=== PATIENT | female | born 1970 | race Caucasian/White ===

== ENCOUNTER 2018-04-16 05:21 | Observation (INO) | payer OTHER ==
[2018-04-16] MEDS ORDERED: PREGNANCY TEST KIT 1 EACH KIT MC ONE (05:28)
[2018-04-16] MEDS ORDERED: LACTATED RINGERS 1,000 ML IV ONE (05:29)
[2018-04-16] MEDS ORDERED: LEVALBUTEROL HCL 1.25 MG/3 ML VIAL.NEB IH ONE (05:44)
[2018-04-16] MEDS ORDERED: ONDANSETRON HCL/PF 4 MG/ 2ML VIAL ONE (08:48)
[2018-04-16] MEDS ORDERED: PROPOFOL 200 MG/20 ML VIAL IV ONE (08:48)
[2018-04-16] MEDS ORDERED: HYDROmorphone HCL/PF 2 MG/ML VIAL ONE ×2 (08:48→10:19)
[2018-04-16] MEDS ORDERED: LACTATED RINGERS 1,000 ML IV.SOLN IV ONE ×2 (08:48)
[2018-04-16] MEDS ORDERED: SEVOFLURANE 250 ML LIQUID IH ONE (08:48)
[2018-04-16] MEDS ORDERED: BACITRACIN 50,000 UNIT VIAL IR ONE (08:48)
[2018-04-16] MEDS ORDERED: LIDOCAINE HCL 2% PF 100MG/5ML VIAL IJ ONE (08:48)
[2018-04-16] MEDS ORDERED: DEXAMETHASONE SOD PHOS 4 MG/ML VIAL ONE (08:48)
[2018-04-16] MEDS ORDERED: FENTANYL CITRATE/PF 250 MCG/5 ML INJ. ONE (08:48)
[2018-04-16] MEDS ORDERED: ROCURONIUM BROMIDE 10 MG/ML 5ML VIAL ONE (08:48)
[2018-04-16] MEDS ORDERED: GLYCOPYRROLATE 0.2 MG/1 ML 1 ML ONE (08:48)
[2018-04-16] MEDS ORDERED: ceFAZolin SODIUM 1 GM VIAL ONE (08:48)
[2018-04-16] MEDS ORDERED: THROMBIN (RECOMBINANT) 20,000 UNIT VIAL TP ONE (08:48)
[2018-04-16] MEDS ORDERED: MIDAZOLAM HCL 2 MG/2 ML VIAL ONE ×3 (08:48→10:34)
[2018-04-16] MEDS ORDERED: PHENYLEPHRINE HCL 10 MG/1 ML ONE (08:48)
[2018-04-16] MEDS ORDERED: ePHEDrine SULFATE 50 MG/1 ML IVP ONE (08:48)
[2018-04-16] MEDS ORDERED: ACETAMINOPHEN 500 MG TABLET PO PRN (11:25)
[2018-04-16] MEDS ORDERED: MORPHINE SULFATE 4 MG/ML VIAL IVP PRN (11:25)
[2018-04-16] MEDS ORDERED: PROMETHAZINE HCL 25 MG in 0.9 % SODIUM CHLORIDE 50 ML IV PRN (11:25)
[2018-04-16] MEDS ORDERED: ONDANSETRON HCL/PF 4 MG/ 2ML VIAL IVP PRN (11:25)
[2018-04-16] MEDS ORDERED: KETOROLAC TROMETHAMINE 30 MG/1ML VIAL IVP PRN (11:25)
[2018-04-16] MEDS ORDERED: diphenhydrAMINE HCL 25 MG TABLET PO PRN (11:25)
[2018-04-16] MEDS ORDERED: LEVALBUTEROL HCL 1.25 MG/3 ML VIAL.NEB IH PRN (11:37)
--- NOTE | 2018-04-16 11:38 | History and Physical Report ---
History of Present Illnes - History of Present Illness Reason for Visit: S/P Cervical Total Disc Replacement C4/5 Bilateral C6/7 History of Present Illness: Patient is a 47-year-old female being admitted observation s/p cervical total disc replacement of C4/5, C6/7. She has an extensive history of back pain with numerous treatments including; injections, manipulation under anesthesia, facets, and other surgical interventions. It was decided by patient and surgeon to move forward with cervical surgical procedure. Upon my arrival into room patient appeared to be resting comfortably- once I introduced myself she started moving around in the bed complaining of severe pain. Explained that orders were placed and nurse would be in shortly to give appropriate medications. Explained that we would get her up and walk, would try clear liquid diet and advance as tolerated to accomplish goals to discharge home tomorrow. - Past Medical History Cardiac: HTN, Hyperlipidemia Pulmonary: Asthma Psych: Other (PTSD, Insomnia) Musculoskeletal: Osteoarthritis, Other (DDD, neuropathy) Endocrine: obesity Grav: 2 Para: 2 - Past Surgical History Past Surgical History: Tubal Ligation, Other (back surgeries, RFA) - Past Family History Mother Family History: Father Family History: CAD, Hyperlipidemia, Hypertension - Past Social History Smoke: 1 pack per day Alcohol: None Drugs: None Lives: With Family Domestic Violence: Negative - Health Maintenance Health Maintenance: Influenza Vaccine Influenza Vaccine: Current for this Influenza Season Pneumonia Vaccine: No Resuscitation Status: Resusciation Status Resuscitation Status Full Code - Unable to Obtain History Unable to Obtain: No Review of Systems - Review of Systems Constitutional: negative: Fever, Chills Eyes: negative: pain, vision change ENT: negative: Ear Pain, Nose Pain, Throat Pain Respiratory: negative: Cough, Shortness of Breath Cardiovascular: negative: Chest Pain Gastrointestinal: negative: Nausea, Vomiting Genitourinary: negative: Dysuria Musculoskeletal: Neck Pain (s/p surgery) Skin: negative: Rash Neurological: negative: Numbness, Change in Speech, Confusion - Medications/Allergies Allergies/Adverse Reactions: Allergies Allergy/AdvReac Type Severity Reaction Status Date / Time quetiapine [From Seroquel] Allergy Verified 04/16/18 11:14 Exam - Exam General: Alert, Oriented to Person, Oriented to Place, Oriented to Time, Cooperative, Moderate distress (pt was calm-lying in bed- until I introduced myself), Obese HEENT: PERRLA, Mouth Mucous membr. moist/[place], Nose Mucous membr. moist/[place] Neck: Other (s/p surgery (c collar on)) Lungs: Clear to auscultation, Normal air movement, Speaks full Sentences Cardiovascular: Normal S1, Normal S2, No murmurs Peripheral Edema: Negative Peripheral Pulses: 2+ Abdomen: Soft, No tenderness, Decreased Bowel Sounds Integumentary: Normal, [place], Warm, Dry Extremities: No edema, Normal pulses, No tenderness/swelling Neurological: Normal speech, Strength Equal Bilat, Sensation intact, Reflexes 2+ Psych/Mental Status: Mental status NL Assessment/Plan - Assessment/Plan (1) Status post cervical disc replacement Status: Acute Current Visit: Yes Assessment: Cervical incision site dressed (intact/dry) with c-collar on. Neurovasculars intact including sensation. 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 Will start patient on clear liquid diet and advance as tolerated. Plan: Nursing will complete neuro checks frequently, SCDs while in bed, frequent ambulation, frequent use of incentive spirometer, heparin q 12 hours (2) Hyperlipidemia Status: Acute Current Visit: Yes Qualifiers: Hyperlipidemia type: mixed hyperlipidemia Qualified Code(s): E78.2 - Mixed hyperlipidemia Assessment: stable on home medications Plan: will continue home medication (3) PTSD (post-traumatic stress disorder) Status: Acute Current Visit: Yes Assessment: Stable on home meds Plan: Will continue on home medications (4) Hypertension Status: Acute Current Visit: Yes Qualifiers: Hypertension type: essential hypertension Qualified Code(s): I10 - Essential (primary) hypertension Assessment: Stable on home meds- blood pressures controlled on admission Plan: Will continue with blood pressure medications (5) Asthma Status: Acute Current Visit: Yes Qualifiers: Asthma severity: mild Asthma persistence: intermittent Assessment: LCTA Plan: Will monitor lung sounds, have patient use incentive spirometer, and HFNs ordered as needed (6) Degenerative disc disease Status: Acute Current Visit: Yes Qualifiers: Spinal region: mid-cervical Mid-cervical spinal level: C6-C7 Qualified Code(s): M50.323 - Other cervical disc degeneration at C6-C7 level Assessment: s/p cervical total disc replacement of C4/5, C6/7 Plan: Will give medication to help with pain, will monitor incision site, and neurovasculars (7) Neuropathy Status: Acute Current Visit: Yes Assessment: stable on home meds Plan: Will continue with home medications VTE Assessment - RISK FACTOR SCORE VTE RISK FACTOR SCORES: AGE 40-60 YEARS, OBESITY, MAJOR SURGERY/ANESTHESIA TIME > 1 HOUR - RISK VTE HIGH RISK: SCORE OF 3-4 (RISK PROXIMAL DVT 4-8%) PROPHYLAXIS NEEDED (Heparin 5000units sq every 12 hrs, freq ambulation, SCDs while in bed)
[2018-04-16] MEDS ORDERED: LORazepam 1 MG TABLET PO PRN (11:55)
[2018-04-16] MEDS: oxyCODONE/ACETAMINOPHEN 5/325 TABLET PO PRN ×3 (12:09→23:32)
[2018-04-16] MEDS: POTASSIUM CHLOR 20 MEQ D51/2NS 1,000 ML IV SCH ×2 (12:09→23:32)
[2018-04-16] MEDS: NICOTINE 14mg PATCH.TD24 TD SCH ×2 (12:16→14:33)
[2018-04-16 13:00] VITALS: BMI 30.3
[2018-04-16] MEDS: BUSPIRONE HCL 5 MG TABLET PO SCH ×2 (13:36→17:35)
[2018-04-16] MEDS: DIAZEPAM 5 MG TABLET PO PRN (19:59)
[2018-04-16] MEDS: HEPARIN SODIUM 5000 UNIT/1 ML SQ SCH (20:09)
[2018-04-16] MEDS: GABAPENTIN ENACARBIL 600 MG PO SCH (20:11)
[2018-04-16] MEDS ORDERED: RED CRASH CART TAGS 1 EACH MC ONE (20:24)
[2018-04-16] MEDS: METHOCARBAMOL PO SCH (20:27)
[2018-04-16] MEDS ORDERED: CELECOXIB 100 MG CAPSULE PO SCH (21:00)
[2018-04-16] MEDS ORDERED: ATORVASTATIN CALCIUM 20 MG TABLET PO SCH (21:00)
[2018-04-16] MEDS ORDERED: traZODone HCL 50 MG TABLET PO SCH (21:00)
[2018-04-17] MEDS: oxyCODONE/ACETAMINOPHEN 5/325 TABLET PO PRN ×4 (04:00→17:58)
[2018-04-17] MEDS: DIAZEPAM 5 MG TABLET PO PRN (05:49)
[2018-04-17] MEDS: POTASSIUM CHLOR 20 MEQ D51/2NS 1,000 ML IV SCH (06:08)
[2018-04-17 07:18] LABS: BASOPHILS % 0.6 (0.0-1.5); EOSINOPHILS % 1.1 % (0.0-6.8); MEAN CORPUSCULAR HEMOGLOBIN 30.5 pg (28.0-34.0); MONOCYTES % 4.6 % (0.0-11.0); NEUTROPHILS # 9.6 # k/uL (1.4-7.7)
[2018-04-17 07:27] LABS: eGFR (Non-African) > 60
[2018-04-17] MEDS ORDERED: METOPROLOL TARTRATE 25 MG TABLET PO SCH (09:00)
[2018-04-17] MEDS ORDERED: LISINOPRIL 20 MG TABLET PO SCH (09:00)
[2018-04-17] MEDS ORDERED: DULoxetine HCL 30 MG CAPSULE.DR PO SCH (09:00)
--- NOTE | 2018-04-17 09:32 | Discharge Summary ---
Discharge Summary - Discharge Sumary History of Present Illness: 47 year old female with ongoing neck pain and neurogenic claudication of the upper extremities, who was evaluated by Dr. Layton and felt to be a candidate for total cervial disc replacement at C4/5 and C6/7. This was performed on April 16, 2018. Condition at Discharge: Stable Home Medications: Ambulatory Orders Medication Instructions Recorded Albuterol Sulfate [Proair HFA] 2 inh IH QID 04/16/18 Atorvastatin Calcium 40 mg PO HS 04/16/18 Buspirone HCl [Buspar] 30 mg PO TID 04/16/18 Celecoxib [Celebrex] 200 mg PO HS 04/16/18 Duloxetine HCl [Cymbalta] 120 mg PO DAILY 04/16/18 Fexofenadine/Pseudoephedrine 1 each PO DAILY 04/16/18 [Sonia-D 24 Hour Tablet] Fluticasone Propionate [Flonase 2 spray NS BID 04/16/18 Nasal [place]] Gabapentin Enacarbil [Horizant] 600 mg PO BID 04/16/18 Lisinopril 20 mg PO DAILY 04/16/18 Lorazepam [Ativan] 1 mg PO BID PRN 04/16/18 Methocarbamol [Robaxin-750] 1,125 mg PO TID 04/16/18 Metoprolol Tartrate [Lopressor] 25 mg PO DAILY 04/16/18 Multivitamin [Daily Multiple 1 each PO DAILY 04/16/18 Vitamin] Trazodone HCl 200 mg PO HS 04/16/18 Consultations this Visit: None Procedures this Visit: Other (Cervical disc replaement at C4/5 and C6/7) Allergies/Adverse Reactions: Allergies Allergy/AdvReac Type Severity Reaction Status Date / Time quetiapine [From Seroquel] Allergy Unknown Verified 04/16/18 13:02 Patient Problems: Current Active Problems Problem Status Onset Asthma Acute Degenerative disc disease Acute Hyperlipidemia Acute Hypertension Acute Neuropathy Acute PTSD (post-traumatic stress disorder) Acute Status post cervical disc replacement Acute Discharge Summary: Patient had surgery on April 16, 2018 without complications. She was able to ambulate 400+ feet and was discharge to home with continuation of her medications as prior to admission with the addition of percocet 7.5/325 1 po q4- 6 hours prn pain. She is to follow up with Dr. Layton on 2/6/19 at 4:15 pm for follow up. Routine discharge teaching is performed.
[2018-04-17] MEDS: BUSPIRONE HCL 5 MG TABLET PO SCH ×2 (09:40→13:17)
[2018-04-17] MEDS: NICOTINE 14mg PATCH.TD24 TD SCH (09:41)
[2018-04-17] MEDS: GABAPENTIN ENACARBIL 600 MG PO SCH (09:41)
[2018-04-17] MEDS: HEPARIN SODIUM 5000 UNIT/1 ML SQ SCH (09:42)
[2018-04-17] MEDS: METHOCARBAMOL PO SCH ×2 (09:43→13:18)
[2018-04-17] MEDS ORDERED: LISINOPRIL 5 MG TABLET PO SCH (10:15)
[2018-04-17 13:27] VITALS: BP 119/72
== END 2018-04-17 17:59 | disposition home or self-care (01) ==
LOC: SOUTH 05:21 → UNDOADMOB 11:12 → INTOOBSV 11:12 → UNDODISOB 04-17 17:59
PROVIDERS: ADMIT Nurse Practitioner Family; ATTEND Nurse Practitioner Family
DX: M50.221 Other cervical disc displacement at C4-C5 level (principal); M50.223 Other cervical disc displacement at C6-C7 level; I10 Essential (primary) hypertension; E78.5 Hyperlipidemia, unspecified; G60.3 Idiopathic progressive neuropathy; F43.10 Post-traumatic stress disorder, unspecified; G43.709 Chronic migraine without aura, not intractable, without status migrainosus; F17.210 Nicotine dependence, cigarettes, uncomplicated
CPT/HCPCS: 36415; 80048; 85025; 97116; 97161; 97165; 97535; A9270; G0378; G0379; J1644; J1885; J7070; 22856; 22858; 96365; 96366; 96375; 99217; 99218; J0690; J1100; J1170; J2001; J2250; J2307; J2405; J2704; J3490; J7614; C1889; J2370; J7120; S1016